=== PATIENT | female | born 1960 | race Caucasian/White ===

== ENCOUNTER 2018-10-14 07:33 | Day surgery (SDC) | payer OTHER ==
[~2018-10-14] VITALS: Ht 162.6 cm; Wt 77.1 kg
[2018-10-14] MEDS ORDERED: DULO20EC PO (08:12)
[2018-10-14] MEDS ORDERED: LIDOCAINE 2% 100 MG/5 ML UJET TP ONE (09:36)
[2018-10-14] MEDS ORDERED: KETOROLAC 30 MG/ML VIAL ONE (09:36)
== END 2018-10-14 11:20 | disposition home or self-care (01) ==
LOC: MDS 07:33 → MMU 07:33 → MDS 11:20
PROVIDERS: ATTEND Internal Medicine Gastroenterology
DX: Z12.11 Encounter for screening for malignant neoplasm of colon (principal); K63.89 Other specified diseases of intestine; E66.9 Obesity, unspecified; Z68.29 Body mass index [BMI] 29.0-29.9, adult; Z98.890 Other specified postprocedural states; Z72.89 Other problems related to lifestyle; Z88.0 Allergy status to penicillin; Z79.899 Other long term (current) drug therapy
CPT/HCPCS: 45378; J1885